=== PATIENT | male | born 1955 | race Caucasian/White ===

== ENCOUNTER 2024-11-13 01:43 | Emergency (ER) | payer MEDICARE, BC, SELFPAY ==
[2024-11-13 01:43] VITALS: BMI 32.6
[2024-11-13 02:30] VITALS: BP 130/77; PULSE 75; RESP 20; TEMP 36.8; O2SAT 96
[2024-11-13 04:13] VITALS: BP 159/72; PULSE 65; RESP 17; TEMP 36.7; O2SAT 95
--- NOTE | 2024-11-13 05:43 | PD.EDRME ---
Rapid Medical Screening Exam RME Arrival date/time: 11/13/24 01:43 Chief Complaint: Abdominal Pain Time Seen by Provider: 11/13/24 05:21 Vital signs: Vital Signs Temperature 98.2 F 11/13/24 02:30 Pulse Rate 75 11/13/24 02:30 Respiratory Rate 20 11/13/24 02:30 Blood Pressure 130/77 11/13/24 02:30 Pulse Oximetry (%) 96 11/13/24 02:30 Oxygen Delivery Method Room Air 11/13/24 02:30 Vital signs reviewed by provider: Yes RME Narrative: 69-year-old male presents to the ED with a complaint of left flank pain for the past 12 hours. He has had associated nausea but no vomiting, diarrhea or constipation. He has a history of renal calculi, approximately 35 years ago. He feels that the pain that he is experiencing now is similar to the previous kidney stone he experienced. He denies dysuria, frequency, or hematuria. Initial pain was a 12/10 and is now currently a 2/10. He states the pain comes on approximately every 20 minutes or so. Labs, urine, CT abdomen pelvis without contrast ordered and pending. Toradol 30 mg IM also ordered. I have greeted and performed a focused initial assessment of this patient. A comprehensive ED assessment and evaluation of the patient, analysis of all test results, and completion of the medical decision making process will be conducted by additional ED providers.
--- NOTE | 2024-11-13 05:45 | XR_ITS ---
Examination: CT abdomen and pelvis without contrast. Coronal 3-D reconstructions. Sagittal 2-D reconstructions. Date and time of exam:November 13, 2024 at 0559 hours INDICATIONS: Onset left-sided flank pain beginning this morning CTDI: vol (mGy): 13.7 DLP: (mGycm): 791 Technique: Axial images of the abdomen have been obtained, 3 mm slice thickness Intravenous contrast material has not been administered. Low dose protocols were performed. One or more of the following dose reduction techniques were used; automated exposure control, adjustment of the mA and/or KV according to patient size, use of iterative reconstruction technique. Findings: No focal liver or splenic lesions Contracted gallbladder No pancreatic mass Nodular thickening both adrenal glands Bilateral renal calculi, largest is in the right kidney 8 mm [id number] left hydronephrosis prominent left perinephric stranding secondary to 3 mm proximal left ureteral calculus Aorta normal size No bowel obstruction. No pericecal inflammatory change No significant prostatomegaly No bladder mass or bladder calculi Moderate osteopenia IMPRESSION: Mild to moderate left hydronephrosis secondary to a 3 mm proximal left ureteral calculus
[2024-11-13 06:03] LABS: Collection Type, Urine Clean Catch
[2024-11-13] MEDS: KETOROLAC INJ 60 MG/2 ML VIAL 30 MG IM (06:04)
[2024-11-13 06:20] LABS: Bilirubin,Urine Negative (Negative); Blood,Urine 2+ (Negative); Clarity,Urine Clear (Clear/Hazy); Color,Urine Lt-Yellow (Lt Yel-Yel); Glucose, Urine 3+ (Negative); Ketones,Urine Negative (Negative); Leukocyte Esterase,Urine Negative (Negative); Nitrite,Urine Negative (Negative); Protein,Urine Trace (Neg - Trace); RBC,Urine 103 /hpf (0-3); Specific Gravity,Urine 1.017 (1.001-1.035); Squamous Epithelial Cell,Urine < 1 /hpf (0-5); Urobilinogen,Urine Negative mg/dL (0.0-1.0); WBC,Urine 1 /hpf (0-5)
[2024-11-13 06:58] LABS: Basophils % (Auto) 0 % (0-2.5); Eosinophils % (Auto) 0 % (0-10); Hemoglobin 12.5 g/dL (13.5-16.0); Immature Granulocytes % (Auto) 1 % (0-0); Immature Granulocytes Auto 0.06 Thou/mm3 (0.00-0.00); Lymphocytes % (Auto) 8 % (10-50); Mean Corpuscular HGB Conc 32.1 g/dl (31.0-37.0); Mean Corpuscular Volume 75 fL (80-100); Monocytes # (Auto) 1.3 Thou/mm3 (0.0-0.8); Monocytes % (Auto) 10 % (0-12); Neutrophils # (Auto) 10.7 Thou/mm3 (1.8-7.7); Neutrophils % (Auto) 82 % (37-80); Nucleated Red Blood Cell % 0 /100 WBC (0); Platelet Count 291 Thou/mm3 (140-440); RDW Standard Deviation 45.5 fL (35.1-43.9); White Blood Count 13.2 Thou/mm3 (3.8-10.6)
[2024-11-13 07:14] LABS: Alanine Aminotransferase 15 U/L (10-49); Albumin, Serum 4.5 gm/dL (3.4-4.8); Albumin/Globulin Ratio 1.9 (1.2-2.2); Alkaline Phosphatase 89 U/L (46-116); Anion Gap 7 (7-16); Aspartate Amino Transferase 17 U/L (0-34); BUN/Creatinine Ratio 11 Ratio (12-20); Bilirubin,Total 0.5 mg/dL (0.3-1.2); Blood Urea Nitrogen 16 mg/dL (9-23); Calcium 9.3 mg/dL (8.3-10.6); Calcium (Corrected) 9.3 mg/dL (8.5-10.1); Carbon Dioxide 26.9 mMol/L (20.0-31.0); Chloride 103 mMol/L (98-107); Creatinine (Component) 1.4 mg/dL (0.6-1.3); Estimated Creatinine Clearance 55.6 mL/min (>60); Globulin 2.4 gm/dL (2.3-3.5); Glucose 156 mg/dL (74-106); Osmolality,Calculated 278 (275-295); Potassium 4.3 mMol/L (3.4-5.1); Sodium 137 mMol/L (136-145); Total Protein 6.9 gm/dL (5.7-8.2); eGFR 54 See Note
--- NOTE | 2024-11-13 07:28 | PD.EDABDPN ---
ED Abdominal Pain RME/HPI General Chief Complaint: Abdominal Pain Stated complaint: LEFT SIDE FLANK/ABDOMINAL PAIN Time seen by provider: 11/13/24 05:21 Arrival date/time: 11/13/24 01:43 Limitations: no limitations RME / HPI RME / HPI narrative: 69-year-old male presents to the ED with a complaint of left flank pain for the past 12 hours. He has had associated nausea but no vomiting, diarrhea or constipation. He has a history of renal calculi, approximately 35 years ago. He feels that the pain that he is experiencing now is similar to the previous kidney stone he experienced. He denies dysuria, frequency, or hematuria. Initial pain was a 12/10 and is now currently a 2/10. He states the pain comes on approximately every 20 minutes or so. Labs, urine, CT abdomen pelvis without contrast ordered and pending. Toradol 30 mg IM also ordered. I have greeted and performed a focused initial assessment of this patient. A comprehensive ED assessment and evaluation of the patient, analysis of all test results, and completion of the medical decision making process will be conducted by additional ED providers. DR. FREDERICK MAIN ED EVALUATION: 69 year old male with past medical history significant for kidney stones presents to the Emergency Department with complaint of left-sided abdominal pain/ left flank pain onset yesterday morning. Pain is intermittent, described as aching and rated moderate in severity. He states the pain is similar to when he has a kidney stone. No nausea, vomiting, or other symptoms reported at this time. Related Data Home Medications ?Medication ?Instructions ?Recorded ?Confirmed amlodipine 10 mg tablet (Norvasc) 10 mg PO QDAY #0 tabs 08/16/14 11/16/22 atenolol 50 mg tablet (Tenormin) 100 mg PO BID #0 tabs 08/16/14 11/16/22 atorvastatin 40 mg tablet (Lipitor) 40 mg PO HS #0 tabs 08/16/14 11/16/22 aspirin 81 mg tablet,delayed 81 mg PO QDAY 01/31/20 11/16/22 release (Aspir-) clopidogrel 75 mg tablet (Plavix) 75 mg PO QDAY 01/31/20 11/16/22 desvenlafaxine succinate 25 mg 10 mg PO QDAY 06/20/20 11/16/22 tablet,extended release 24 hr (Pristiq) dicyclomine 10 mg capsule 10 mg PO TID 11/16/22 11/16/22 ferrous sulfate 325 mg (65 mg 325 mg PO QDAY 11/16/22 11/16/22 iron) tablet (iron) semaglutide 0.25 mg or 0.5 mg (2 0.5 mg subcut QWEEK 11/16/22 11/16/22 mg/3 mL) subcutaneous pen injector (Ozempic) zolpidem 10 mg tablet 10 mg PO HS 11/16/22 11/16/22 Held on 11/16/22. Instructions: Resume on 11/17/22. Previous Rx's ?Medication ?Instructions ?Recorded hydrocodone 5 mg-acetaminophen 325 1 tab PO Q6H PRN pain #10 tabs 11/13/24 mg tablet tamsulosin 0.4 mg capsule (Flomax) 0.4 mg PO QDAY #10 caps 11/13/24 Allergies Allergy/AdvReac Type Severity Reaction Status Date / Time No Known Allergies Allergy Verified 11/16/22 14:47 Review of Systems Review of Systems Systems Reviewed: All systems reviewed, normal except as documented Narrative Review of Systems: GEN: No fever, no chills, no weight loss EYES: No discharge, no visual changes, no pain HEENT: No ear pain, no congestion, no sore throat PULM: No shortness of breath, no cough, no congestion CV: No chest pain, no dyspnea on exertion, no palpitations GI: No nausea, no vomiting, no diarrhea, + left-sided abdominal pain/ left flank pain, no constipation : No frequency, no urgency and no dysuria MUSC/SKEL: No joint pain, no back pain SKIN: No rash PSYCH: No hallucinations, no depression HEME/LYMPH: No easy bleeding or bruising tendencies NEURO: No weakness, no headache Past Medical History Past Medical History CARDIAC: Positive Cardiac Disorders (CORONARY STENT X3), Hypercholesterolemia (TAKES MED) and Hypertension (TAKES MED) GASTROINTESTINAL: Positive Gastrointestinal Disorders, Hemorrhoids and Obesity ENT: Positive Cataracts (RIGHT EYE 06/23/2020) ENDOCRINE: Positive Endocrine Disorders and Diabetes Mellitus Type 2 (TAKES PO AND INSULIN) PSYCHO/SOCIAL: Positive Depression and Anxiety OTHER HISTORY: Positive Chicken Pox, Measles and Mumps Family History FAMILY HISTORY: Positive Family Cardiac Disorders (FATHER (HTN, OPEN HEART)) and Family Surgery (MOTHER,FATHER) Surgical History SURGICAL: Positive Coronary Stent (X3), Pacemaker, Angiogram, Arthroscopy (RIGHT KNEE X3) and Vasectomy Social History SMOKING STATUS: Current every day smoker SUBSTANCE USE: does not use ALCOHOL: Never ED Exam General Limitations: Present no limitations General appearance: Present alert and in no apparent distress Head Head exam: Present atraumatic, normocephalic and normal inspection Eye Eye exam: Present normal appearance, PERRL and EOMI ENT ENT exam: Present normal exam, normal oropharynx and mucous membranes moist Neck Neck exam: Present normal inspection, full ROM and trachea midline Chest Chest inspection: Present normal inspection and symmetric chest wall rise Respiratory Respiratory exam: Present normal lung sounds bilaterally Cardiovascular Cardiovascular exam: Present regular rate, normal rhythm and normal heart sounds Abdominal Exam Abdominal exam: Present soft and normal bowel sounds Extremities Exam Extremities exam: Present normal inspection and full ROM Back Exam Back exam: Present normal inspection and full ROM Neurological Exam Neurological exam: Present alert, oriented X3 and CN II-XII intact Psychiatric Psychiatric exam: Present normal affect and normal mood Skin Skin exam: Present warm, dry, intact and normal color Course Quality Measures none Orders Category Date Time Status Discharge Routine Discharge 11/13/24 07:[address] abdomen pelvis wo con Stat Exams 11/13/24 05:45 Completed CBC Stat Lab 11/13/24 06:19 Completed CMP [Comprehensive Metabolic Panel] Stat Lab 11/13/24 06:19 Completed Urinalysis Stat Lab 11/13/24 05:51 Completed Ketorolac Inj [Toradol Inj] Med 11/13/24 05:45 Discontinued 30 mg IM X1 ONE Vital Signs Vital signs: Vital Signs Temperature 98.2 F 11/13/24 02:30 Pulse Rate 75 11/13/24 02:30 Respiratory Rate 20 11/13/24 02:30 Blood Pressure 130/77 11/13/24 02:30 Pulse Oximetry (%) 96 11/13/24 02:30 Oxygen Delivery Method Room Air 11/13/24 02:30 Abdominal Pain MDM MDM Narrative MDM Narrative:: I, Kelsey Mittal am scribing for and in the presence of Dr. Frederick. Patient has left renal colic Stone is 3 mm in size The stone should pass without problem There is no evidence of UTI or sepsis Patient was relieved with Toradol However he does have CKD so no place for NSAID of his treatment Will give him [place] 11/10/2024 for pain control every 6 hours as needed Use Flomax every day for the next 10 days Follow-up with the urologist by seeing his primary care physician and get referral Patient has history of kidney stones in the past also poses a recurrence after almost 3 years Patient has CKD so no place for NSAID Patient was initially good condition Upon assessment CKD Left ureteric stone and renal colic Plan Discharge home with [place] and Flomax Follow-up with MD Patient was discharged good condition Patient data External records reviewed:: [facility] previous records (Reviewed last ED visit dated 06/19/22, discharged with the following: Encounter for care of pacemaker) Clinical information provided by:: patient Social determinants that could affect healthcare access:: none Patient has the following chronic illnesses:: kidney stones How is presenting disease/condition affected by chronic disease/condition?: caused by Evaluation data The following diagnostics were reviewed and interpreted by me:: lab results and radiology exam(s) Lab and/or radiology exams considered but not ordered:: none Interpretation Summary: Procedure(s): CT abdomen pelvis [place] [facility] [place] Accession Number(s): [id number] cc: Ty Mcintyre MD; NO PRIMARY/FAMILY,PHYSICIAN; Ramona Banegas PA-C~ Examination: CT abdomen and pelvis without contrast. Coronal 3-D reconstructions. Sagittal 2-D reconstructions. Date and time of exam:November 13, 2024 at 0559 hours INDICATIONS: Onset left-sided flank pain beginning this morning CTDI: vol (mGy): 13.7 DLP: (mGycm): 791 Technique: Axial images of the abdomen have been obtained, 3 mm slice thickness Intravenous contrast material has not been administered. Low dose protocols were performed. One or more of the following dose reduction techniques were used; automated exposure control, adjustment of the mA and/or KV according to patient size, use of iterative reconstruction technique. Findings: No focal liver or splenic lesions Contracted gallbladder No pancreatic mass Nodular thickening both adrenal glands Bilateral renal calculi, largest is in the right kidney 8 mm [id number] left hydronephrosis prominent left perinephric stranding secondary to 3 mm proximal left ureteral calculus Aorta normal size No bowel obstruction. No pericecal inflammatory change No significant prostatomegaly No bladder mass or bladder calculi Moderate osteopenia IMPRESSION: Mild to moderate left hydronephrosis secondary to a 3 mm proximal left ureteral calculus Dictated By: Ty Mcintyre MD Medications / Prescriptions Medications or Prescriptions considered but not ordered:: none Medication administrations:: Medication Administration History Discontinued Medications Ketorolac Tromethamine (Ketorolac Inj 60 Mg/2 Ml Vial) 30 mg IM X1 ONE Stop: 11/13/24 05:46 Last Admin: 11/13/24 06:04 Dose: 30 mg Documented By: CB see above Consultations Consultation(s) initiated? (list below): No Diagnosis Differential diagnosis abdominal pain: abdominal pain, calculus of kidney and small bowel obstruction Most likely diagnosis given after review of the tests above:: Kidney stone Admission Indicated Admission indicated?: not indicated Admission Request Was there a request for admission?: No Disposition Plan Disposition Plan: Discharge Discharge Attestation Discharge Attestation: The patient and all family members were given an opportunity to ask questions and understood the discharge instructions. Discharge instructions specifically effects, indications for sooner follow up or return to the emergency department, and the expected course of current diagnosis. Patient condition: Stable Discharge Plan Plan Patient Disposition: HOME (Self Care) Prescriptions/Referrals Prescriptions/Med Rec: New hydrocodone-acetaminophen 5-325 mg tablet 1 tab PO Q6H MDD 4 PRN (Reason: pain) Qty: 10 0RF tamsulosin [Flomax] 0.4 mg capsule 0.4 mg PO QDAY Qty: 10 0RF No Action atorvastatin [Lipitor] 40 MG tablet 40 mg PO HS Qty: 0 amlodipine [Norvasc] 10 MG tablet 10 mg PO QDAY Qty: 0 atenolol [Tenormin] 50 MG tablet 100 mg PO BID Qty: 0 clopidogrel [Plavix] 75 mg Tablet 75 mg PO QDAY aspirin [Aspir-81] 81 mg Tablet,Delayed Release (Dr/Ec) 81 mg PO QDAY desvenlafaxine succinate [Pristiq] 25 mg Tablet Extended Release 24 Hr 10 mg PO QDAY ferrous sulfate [iron] 325 mg (65 mg iron) Tablet 325 mg PO QDAY zolpidem 10 mg tablet 10 mg PO HS Patient Comments: TAKE 1 TABLET BY MOUTH AT BEDTIME NEEDED dicyclomine 10 mg Capsule 10 mg PO TID Ozempic 0.25 mg or 0.5 mg (2 mg/3 mL) pen injector 0.5 mg SUBCUT QWEEK Patient Comments: INJECT 0.5MG SUBCUTANEOUSLY WEEKLY DIRECTED Referrals: No Primary/Family,Physician [Primary Care Provider] - In 1 week Problem List Clinical Impression: Calculus of kidney Patient/Caregiver Discharge Instructions Discharge Activity: activity as tolerated Education Materials: ED Kidney Stone w/ Colic Print Language: Tajik Stand Alone Forms: Tamar Award Info., Patient Portal Info Letter
== END 2024-11-13 07:44 | disposition home or self-care (01) ==
PROVIDERS: Physician Assistant; Emergency Provider Emergency Medicine
DX: N13.2 Hydronephrosis with renal and ureteral calculous obstruction (principal)
CPT/HCPCS: 36415; 74176; 80053; 81001; 85025; 96372; 99284; J1885

== ENCOUNTER → 2024-12-17 | Outpatient (CLI) | payer MEDICARE, BC, SELFPAY ==
--- NOTE | 2024-12-17 15:06 | XR_ITS ---
Examination: Shoulder,right, 3 views Technique: Shoulder AP internal rotation, AP external rotation, Y view shoulder, 3 views Exam date and time :December 17, 2024 1510 hours INDICATIONS: Right shoulder pain months FINDINGS: Moderate osteopenia Moderate narrowing glenohumeral joint No fracture or dislocation IMPRESSION: Moderate narrowing glenohumeral joint
== END | disposition home or self-care (01) ==
LOC: CDIM 14:54
PROVIDERS: PCP Family Medicine; Referring Provider Nurse Practitioner Family; Visit Provider Nurse Practitioner Family
DX: M25.811 Other specified joint disorders, right shoulder (principal)
CPT/HCPCS: 73030

== ENCOUNTER → 2024-12-28 | Outpatient (CLI) | payer MEDICARE, BC, SELFPAY ==
--- NOTE | 2024-12-28 08:57 | XR_ITS ---
Examination: Duplex scan of the upper extremity, unilateral right Date and time of exam: December 28, 2024 0908 hours INDICATIONS: Medial right forearm pain 9 days Technique: Duplex scan of the extremity veins using B-mode/grayscale imaging and Doppler spectral analysis and color flow Attention is directed to internal echogenicity, compression and augmentation involving these veins, color flow assessment, spectral analysis Findings: Major deep venous structures in the extremity demonstrate normal course and caliber. There is no evidence of deep vein thrombosis. Normal color flow and spectral analysis Impression: Negative for DVT..
== END | disposition home or self-care (01) ==
PROVIDERS: PCP Nurse Practitioner Family; Referring Provider Nurse Practitioner Family; Visit Provider Radiology Diagnostic Radiology
DX: R22.31 Localized swelling, mass and lump, right upper limb (principal)
CPT/HCPCS: 93971

== ENCOUNTER → 2025-02-14 | Outpatient (CLI) | payer MEDICARE, BC, SELFPAY ==
[2025-02-14 17:55] LABS: Glucose Estimated Average 154 mg/dL (80-131); Hemoglobin A1C 7.0 % Hgb (4.8-6.0)
[2025-02-14 17:58] LABS: Alanine Aminotransferase 13 U/L (10-49); Albumin, Serum 4.4 gm/dL (3.4-4.8); Albumin/Globulin Ratio 2.0 (1.2-2.2); Alkaline Phosphatase 82 U/L (46-116); Anion Gap 9 (7-16); Aspartate Amino Transferase 14 U/L (0-34); BUN/Creatinine Ratio 10 Ratio (12-20); Bilirubin,Total 0.4 mg/dL (0.3-1.2); Blood Urea Nitrogen 12 mg/dL (9-23); Calcium 9.4 mg/dL (8.3-10.6); Calcium (Corrected) 9.4 mg/dL (8.5-10.1); Carbon Dioxide 26.4 mMol/L (20.0-31.0); Chloride 105 mMol/L (98-107); Creatinine (Component) 1.2 mg/dL (0.6-1.3); Globulin 2.2 gm/dL (2.3-3.5); Glucose 144 mg/dL (74-106); Osmolality,Calculated 282 (275-295); Potassium 4.7 mMol/L (3.4-5.1); Sodium 140 mMol/L (136-145); Total Protein 6.6 gm/dL (5.7-8.2); eGFR > 60 See Note
== END | disposition home or self-care (01) ==
LOC: COPL 16:36
PROVIDERS: PCP Nurse Practitioner Family; Referring Provider Nurse Practitioner Family; Visit Provider Nurse Practitioner Family
DX: E11.9 Type 2 diabetes mellitus without complications (principal); N13.30 Unspecified hydronephrosis
CPT/HCPCS: 36415; 80053; 83036

== ENCOUNTER → 2025-03-21 | Outpatient (BNVA) | payer MEDICARE, BC, SELFPAY | END | disposition home or self-care (01) | PROVIDERS: PCP Internal Medicine; Referring Provider Internal Medicine; Visit Provider Urology | DX: N40.1 Benign prostatic hyperplasia with lower urinary tract symptoms (principal); N13.8 Other obstructive and reflux uropathy; R39.198 Other difficulties with micturition; Z87.442 Personal history of urinary calculi; I10 Essential (primary) hypertension; E11.9 Type 2 diabetes mellitus without complications; I25.10 Atherosclerotic heart disease of native coronary artery without angina pectoris; Z95.5 Presence of coronary angioplasty implant and graft; N20.0 Calculus of kidney; E66.01 Morbid (severe) obesity due to excess calories; Z71.3 Dietary counseling and surveillance; Z68.34 Body mass index [BMI] 34.0-34.9, adult; F17.210 Nicotine dependence, cigarettes, uncomplicated; E78.00 Pure hypercholesterolemia, unspecified | CPT/HCPCS: 81003; 99212; G0463 ==

== ENCOUNTER → 2025-04-11 | Outpatient (BNVA) | payer MEDICARE, BC, SELFPAY | END | disposition home or self-care (01) | PROVIDERS: PCP Internal Medicine; Referring Provider Internal Medicine; Visit Provider Urology | DX: N40.1 Benign prostatic hyperplasia with lower urinary tract symptoms (principal); R39.12 Poor urinary stream; F17.210 Nicotine dependence, cigarettes, uncomplicated; Z71.6 Tobacco abuse counseling; I10 Essential (primary) hypertension; E11.9 Type 2 diabetes mellitus without complications; Z79.4 Long term (current) use of insulin; Z79.84 Long term (current) use of oral hypoglycemic drugs | CPT/HCPCS: 51741; 51798 ==

== ENCOUNTER → 2025-04-29 | Outpatient (BNVA) | payer MEDICARE, BC, SELFPAY | END | disposition home or self-care (01) | PROVIDERS: PCP Internal Medicine; Referring Provider Internal Medicine; Visit Provider Urology | DX: N40.1 Benign prostatic hyperplasia with lower urinary tract symptoms (principal); N13.8 Other obstructive and reflux uropathy; I10 Essential (primary) hypertension; F17.210 Nicotine dependence, cigarettes, uncomplicated; Z71.6 Tobacco abuse counseling; E66.9 Obesity, unspecified; Z68.33 Body mass index [BMI] 33.0-33.9, adult | CPT/HCPCS: 76872 ==